=== PATIENT | male | born 1965 | race Caucasian/White ===

== ENCOUNTER 2019-03-22 16:05 | Inpatient (IN) ==
[2019-03-22] MEDS ORDERED: Isovue-370 500 ML BOTTLE IVP ONE (18:34)
[2019-03-22 19:01] LABS: Basophils % 0.3 %; Eosinophils # 0.1 K/mcL (0.0-0.6); Eosinophils % 0.6 %; Hematocrit 40.9 % (37.5-50.1); Hemoglobin 13.9 g/dL (12.9-16.9); Immature Granulocytes % 0.6 % (0-4); Lymphocytes # 3.1 K/mcL (0.6-4.6); Lymphocytes % 29.6 %; Mean Corpuscular Hemoglobin 31.4 pg (28.0-33.3); Mean Corpuscular Volume 92.5 fL (83.0-100.0); Mean Platelet Volume 10.2 fL (9.4-12.4); Monocytes # 1.1 K/mcL (0.0-1.3); Monocytes % 10.5 %; Neutrophils # 6.1 K/mcL (1.6-8.9); Platelet Count 214 K/mcL (140-400); Red Blood Count 4.42 M/mcL (4.19-5.50); Red Cell Distribution Width 12.6 % (11.5-14.5); Segmented Neutrophils % 58.4 %; White Blood Count 10.5 K/mcL (4.3-11.1)
[2019-03-22 19:08] LABS: INR 1.2; Prothrombin Time 13.4 Seconds (9.4-12.1)
[2019-03-22 19:11] LABS: Activated Partial Thrombo Time 34.4 Seconds (26.0-36.0)
[2019-03-22 19:20] LABS: Alanine Aminotransferase 6 Units/L (7-52); Albumin 3.8 g/dL (3.5-5.7); Albumin/Globulin Ratio 1.1 (1.1-2.2); Alkaline Phosphatase 52 Units/L (34-104); Aspartate Amino Transferase 10 Units/L (13-39); BUN/Creatinine Ratio 24 (6-26); Bilirubin,Direct 0.2 mg/dL (0.0-0.2); Bilirubin,Indirect 0.3 mg/dL (0.0-1.2); Bilirubin,Total 0.5 mg/dL (0.3-1.0); Blood Urea Nitrogen 20 mg/dL (6-20); Calcium 9.2 mg/dL (8.6-10.3); Carbon Dioxide 25 mEq/L (23-29); Chloride 102 mEq/L (98-107); Globulin 3.4 g/dL (2.4-3.5); Glucose 93 mg/dL (70-105); Osmolality,Calculated 282 (280-300); Phosphorous 3.4 mg/dL (2.7-4.5); Potassium 4.1 mEq/L (3.5-5.1); Sodium 135 mEq/L (136-145); Total Protein 7.2 g/dL (6.4-8.9); eGFR For African Americans > 60 (> 60); eGFR For Non-African Americans > 60 (> 60)
[2019-03-22] MEDS ORDERED: Ketorolac 30 MG/ML VIAL IVP ONE (21:01)
[2019-03-22] MEDS ORDERED: Clindamycin 600 MG/50 ML 600 MG/50 ML IV.SOLN IVPB ONE (22:01)
[2019-03-23] MEDS ORDERED: Ondansetron 4 MG/2 ML VIAL IVP PRN (00:09)
[2019-03-23] MEDS ORDERED: Naloxone 0.4 MG/ML INJ IVP PRN (00:09)
[2019-03-23] MEDS ORDERED: Acetaminophen 325 MG TABLET PO PRN ×2 (00:09→05:57)
[2019-03-23] MEDS ORDERED: Mag Hydrox/Al Hydrox/Simeth 30 ML UDC PO PRN (00:09)
[2019-03-23] MEDS: 0.9 % Sodium Chloride 1,000 ML IVC SCH ×2 (01:26→08:47)
[2019-03-23] MEDS: *HR* HYDROcodone/Acet 5/325 mg TABLET PO PRN ×4 (01:29→17:07)
[2019-03-23] MEDS ORDERED: hydrOXYzine pamoate 25 MG CAPSULE PO PRN (05:57)
[2019-03-23 07:09] LABS: Basophils % 0.1 %; Eosinophils # 0.1 K/mcL (0.0-0.6); Eosinophils % 1.5 %; Hemoglobin 12.9 g/dL (12.9-16.9); Immature Granulocytes % 0.4 % (0-4); Lymphocytes # 2.8 K/mcL (0.6-4.6); Lymphocytes % 41.3 %; Mean Corpuscular HGB Conc 33.9 g/dL (31.6-35.5); Mean Corpuscular Hemoglobin 31.4 pg (28.0-33.3); Mean Corpuscular Volume 92.5 fL (83.0-100.0); Mean Platelet Volume 10.5 fL (9.4-12.4); Monocytes # 0.8 K/mcL (0.0-1.3); Monocytes % 11.2 %; Neutrophils # 3.1 K/mcL (1.6-8.9); Platelet Count 209 K/mcL (140-400); Red Blood Count 4.11 M/mcL (4.19-5.50); Red Cell Distribution Width 12.5 % (11.5-14.5); Segmented Neutrophils % 45.5 %; White Blood Count 6.8 K/mcL (4.3-11.1)
[2019-03-23 07:18] LABS: INR 1.2; Prothrombin Time 13.9 Seconds (9.4-12.1)
[2019-03-23 07:20] LABS: Activated Partial Thrombo Time 34.6 Seconds (26.0-36.0)
[2019-03-23 07:29] LABS: Alanine Aminotransferase 6 Units/L (7-52); Albumin 3.3 g/dL (3.5-5.7); Albumin/Globulin Ratio 1.1 (1.1-2.2); Alkaline Phosphatase 46 Units/L (34-104); Aspartate Amino Transferase 8 Units/L (13-39); BUN/Creatinine Ratio 24 (6-26); Bilirubin,Total 0.4 mg/dL (0.3-1.0); Blood Urea Nitrogen 21 mg/dL (6-20); Calcium 8.9 mg/dL (8.6-10.3); Carbon Dioxide 28 mEq/L (23-29); Chloride 102 mEq/L (98-107); Chol/HDL Ratio 4.3 (0-4.9); Cholesterol 117 mg/dL (< 200); Glucose 125 mg/dL (70-105); HDL Cholesterol 27 mg/dL (40-59); LDL Cholesterol,Calculated 65 mg/dL (0-99); Magnesium 2.1 mg/dL (1.6-2.6); Osmolality,Calculated 288 (280-300); Phosphorous 3.8 mg/dL (2.7-4.5); Potassium 3.7 mEq/L (3.5-5.1); Sodium 137 mEq/L (136-145); Total Protein 6.3 g/dL (6.4-8.9); Triglycerides 123 mg/dL (< 150); eGFR For African Americans > 60 (> 60); eGFR For Non-African Americans > 60 (> 60)
[2019-03-23] MEDS: Cholecalciferol (D-3) 1,000 UNIT (25MCG) TABLET PO SCH (07:45)
[2019-03-23] MEDS ORDERED: *HR* Labetalol 20 MG/4 ML SYRINGE IVP PRN (07:45)
[2019-03-23] MEDS: Nicotine 21 MG PATCH.TD24 TD SCH (07:46)
[2019-03-23] MEDS: Divalproex (12 HR) 500 MG TABLET PO SCH ×2 (07:46→20:12)
[2019-03-23] MEDS: FLUoxetine 20 MG CAPSULE PO SCH (07:46)
[2019-03-23] MEDS ORDERED: Gadolinium Contrast Agent (WT Based) IV PRN (08:05)
[2019-03-23] MEDS ORDERED: clonazePAM 1 MG TABLET PO SCH (09:00)
[2019-03-23] MEDS ORDERED: (Fluticasone/Vilanterol [Breo Ellipta 100-25 Mcg Inh] IH SCH (10:00)
[2019-03-23] MEDS: Budesonide/Formoterol 80/4.5 1 PUFF INH IH SCH (20:03)
[2019-03-23] MEDS ORDERED: (Loxapine Succinate [Loxapine] 10 MG) PO SCH (21:00)
[2019-03-23] MEDS ORDERED: OLANZapine 5 MG TAB.RAPDIS PO SCH (21:00)
[2019-03-24] MEDS: *HR* HYDROcodone/Acet 5/325 mg TABLET PO PRN ×5 (01:04→23:30)
[2019-03-24 04:25] LABS: Basophils % 0.2 %; Eosinophils # 0.1 K/mcL (0.0-0.6); Eosinophils % 0.9 %; Immature Granulocytes % 0.4 % (0-4); Lymphocytes # 3.1 K/mcL (0.6-4.6); Lymphocytes % 36.5 %; Mean Corpuscular HGB Conc 33.3 g/dL (31.6-35.5); Mean Corpuscular Hemoglobin 31.3 pg (28.0-33.3); Mean Corpuscular Volume 93.8 fL (83.0-100.0); Mean Platelet Volume 10.4 fL (9.4-12.4); Monocytes # 0.9 K/mcL (0.0-1.3); Monocytes % 10.7 %; Neutrophils # 4.4 K/mcL (1.6-8.9); Platelet Count 211 K/mcL (140-400); Red Blood Count 3.84 M/mcL (4.19-5.50); Red Cell Distribution Width 12.6 % (11.5-14.5); Segmented Neutrophils % 51.3 %; White Blood Count 8.5 K/mcL (4.3-11.1)
[2019-03-24 04:51] LABS: BUN/Creatinine Ratio 14 (6-26); Blood Urea Nitrogen 12 mg/dL (6-20); Calcium 8.4 mg/dL (8.6-10.3); Carbon Dioxide 28 mEq/L (23-29); Chloride 108 mEq/L (98-107); Glucose 87 mg/dL (70-105); Osmolality,Calculated 289 (280-300); Potassium 4.1 mEq/L (3.5-5.1); Sodium 140 mEq/L (136-145); eGFR For African Americans > 60 (> 60); eGFR For Non-African Americans > 60 (> 60)
[2019-03-24] MEDS ORDERED: Vancomycin 1,000 MG, 0.9 % Sodium Chloride 1,000 ML IR ONE ×2 (06:00→20:28)
[2019-03-24] MEDS: Budesonide/Formoterol 80/4.5 1 PUFF INH IH SCH ×4 (07:36→21:09)
[2019-03-24] MEDS: Divalproex (12 HR) 500 MG TABLET PO SCH ×2 (08:41→20:55)
[2019-03-24] MEDS: Nicotine 21 MG PATCH.TD24 TD SCH (08:41)
[2019-03-24] MEDS: Cholecalciferol (D-3) 1,000 UNIT (25MCG) TABLET PO SCH (08:41)
[2019-03-24] MEDS: FLUoxetine 20 MG CAPSULE PO SCH (08:42)
[2019-03-24] MEDS ORDERED: traZODone 50 MG TABLET PO PRN ×3 (15:50→20:28)
[2019-03-24] MEDS ORDERED: *HR* FentaNYL (PF) 100 MCG/2 ML VIAL ONE ×2 (17:59→19:48)
[2019-03-24] MEDS ORDERED: *HR* Propofol 200 MG/20 ML VIAL IVP ONE ×2 (17:59→18:26)
[2019-03-24] MEDS ORDERED: *HR* Midazolam HCl 2 MG/2 ML VIAL ONE (17:59)
[2019-03-24] MEDS ORDERED: *HR* Heparin 5,000 UNIT/ML VIAL SQ SCH (18:00)
[2019-03-24] MEDS ORDERED: *HR* FentaNYL (PF) 100 MCG/2 ML VIAL IVP ONE (19:57)
[2019-03-24] MEDS ORDERED: Gadolinium Contrast Agent (WT Based) IV PRN (20:28)
[2019-03-24] MEDS ORDERED: Mag Hydrox/Al Hydrox/Simeth 30 ML UDC PO PRN (20:28)
[2019-03-24] MEDS ORDERED: hydrOXYzine pamoate 25 MG CAPSULE PO PRN (20:28)
[2019-03-24] MEDS ORDERED: Naloxone 0.4 MG/ML INJ IVP PRN (20:28)
[2019-03-24] MEDS ORDERED: Acetaminophen 325 MG TABLET PO PRN (20:28)
[2019-03-24] MEDS ORDERED: Ondansetron 4 MG/2 ML VIAL IVP PRN (20:28)
[2019-03-24] MEDS ORDERED: *HR* Labetalol 20 MG/4 ML SYRINGE IVP PRN (20:28)
[2019-03-24] MEDS: clonazePAM 1 MG TABLET PO SCH (20:56)
[2019-03-24] MEDS ORDERED: clonazePAM 1 MG TABLET PO SCH (21:00)
[2019-03-25 05:41] LABS: Basophils % 0.1 %; Hematocrit 38.5 % (37.5-50.1); Hemoglobin 12.7 g/dL (12.9-16.9); Immature Granulocytes % 0.4 % (0-4); Lymphocytes # 1.5 K/mcL (0.6-4.6); Lymphocytes % 18.2 %; Mean Corpuscular Volume 93.9 fL (83.0-100.0); Mean Platelet Volume 10.6 fL (9.4-12.4); Monocytes # 0.7 K/mcL (0.0-1.3); Monocytes % 9.1 %; Neutrophils # 5.8 K/mcL (1.6-8.9); Platelet Count 236 K/mcL (140-400); Red Cell Distribution Width 12.5 % (11.5-14.5); Segmented Neutrophils % 72.2 %
[2019-03-25 06:00] LABS: BUN/Creatinine Ratio 11 (6-26); Blood Urea Nitrogen 9 mg/dL (6-20); Calcium 8.9 mg/dL (8.6-10.3); Carbon Dioxide 30 mEq/L (23-29); Chloride 100 mEq/L (98-107); Glucose 174 mg/dL (70-105); Osmolality,Calculated 289 (280-300); Potassium 4.7 mEq/L (3.5-5.1); Sodium 138 mEq/L (136-145); eGFR For African Americans > 60 (> 60); eGFR For Non-African Americans > 60 (> 60)
[2019-03-25] MEDS: *HR* Heparin 5,000 UNIT/ML VIAL SQ SCH ×2 (06:12→18:53)
[2019-03-25] MEDS: Budesonide/Formoterol 80/4.5 1 PUFF INH IH SCH ×2 (08:07→20:33)
[2019-03-25] MEDS ORDERED: FLUoxetine 20 MG CAPSULE PO SCH (09:00)
[2019-03-25] MEDS: Nicotine 21 MG PATCH.TD24 TD SCH (10:35)
[2019-03-25] MEDS: Divalproex (12 HR) 500 MG TABLET PO SCH ×2 (10:35→21:39)
[2019-03-25] MEDS: FLUoxetine 20 MG CAPSULE PO SCH (10:35)
[2019-03-25] MEDS: clonazePAM 1 MG TABLET PO SCH ×2 (10:35→21:38)
[2019-03-25] MEDS: Cholecalciferol (D-3) 1,000 UNIT (25MCG) TABLET PO SCH (10:36)
[2019-03-25] MEDS: *HR* HYDROcodone/Acet 5/325 mg TABLET PO PRN ×2 (10:36→18:52)
[2019-03-25] MEDS: levoFLOXacin 750 MG/150 ML 750 MG/150 ML BAG IVPB SCH (10:36)
[2019-03-26] MEDS: *HR* HYDROcodone/Acet 5/325 mg TABLET PO PRN ×2 (02:27→20:56)
[2019-03-26] MEDS: *HR* Heparin 5,000 UNIT/ML VIAL SQ SCH ×2 (05:06→18:15)
[2019-03-26 06:06] LABS: Basophils % 0.2 %; Eosinophils # 0.1 K/mcL (0.0-0.6); Eosinophils % 0.8 %; Hematocrit 38.8 % (37.5-50.1); Hemoglobin 12.9 g/dL (12.9-16.9); Immature Granulocytes % 0.6 % (0-4); Lymphocytes # 4.3 K/mcL (0.6-4.6); Lymphocytes % 48.7 %; Mean Corpuscular HGB Conc 33.2 g/dL (31.6-35.5); Mean Corpuscular Hemoglobin 30.7 pg (28.0-33.3); Mean Corpuscular Volume 92.4 fL (83.0-100.0); Mean Platelet Volume 10.6 fL (9.4-12.4); Monocytes # 0.9 K/mcL (0.0-1.3); Monocytes % 10.4 %; Neutrophils # 3.5 K/mcL (1.6-8.9); Platelet Count 244 K/mcL (140-400); Red Cell Distribution Width 12.8 % (11.5-14.5); Segmented Neutrophils % 39.3 %; White Blood Count 8.8 K/mcL (4.3-11.1)
[2019-03-26 06:27] LABS: BUN/Creatinine Ratio 12 (6-26); Blood Urea Nitrogen 12 mg/dL (6-20); Carbon Dioxide 30 mEq/L (23-29); Chloride 101 mEq/L (98-107); Glucose 96 mg/dL (70-105); Osmolality,Calculated 292 (280-300); Sodium 141 mEq/L (136-145); eGFR For African Americans > 60 (> 60); eGFR For Non-African Americans > 60 (> 60)
[2019-03-26] MEDS: Budesonide/Formoterol 80/4.5 1 PUFF INH IH SCH ×2 (07:05→19:43)
[2019-03-26] MEDS: Cholecalciferol (D-3) 1,000 UNIT (25MCG) TABLET PO SCH (08:43)
[2019-03-26] MEDS: Divalproex (12 HR) 500 MG TABLET PO SCH ×2 (08:43→20:57)
[2019-03-26] MEDS: FLUoxetine 20 MG CAPSULE PO SCH (08:43)
[2019-03-26] MEDS: clonazePAM 1 MG TABLET PO SCH ×2 (08:43→20:56)
[2019-03-26] MEDS: Nicotine 21 MG PATCH.TD24 TD SCH (08:44)
[2019-03-26] MEDS: levoFLOXacin 750 MG/150 ML 750 MG/150 ML BAG IVPB SCH (08:46)
[2019-03-26] MEDS ORDERED: *HR* OxyCODONE Immed Rel 5 MG TABLET PO PRN (16:02)
[2019-03-26] MEDS ORDERED: Ketorolac 30 MG/ML VIAL IVP ONE ×2 (16:02→18:41)
[2019-03-26] MEDS ORDERED: *HR* Promethazine 25 MG/ML VIAL IVP PRN ×2 (16:02→18:41)
[2019-03-26] MEDS ORDERED: *HR* Labetalol 20 MG/4 ML SYRINGE IVP PRN ×3 (16:02→18:41)
[2019-03-26] MEDS ORDERED: Ondansetron 4 MG/2 ML VIAL IVP ONE ×2 (16:02→18:41)
[2019-03-26] MEDS ORDERED: Albuterol 2.5 MG/3 ML NEBULIZER IH ONE (16:02)
[2019-03-26] MEDS ORDERED: *HR* Propofol 200 MG/20 ML VIAL IVP ONE (16:46)
[2019-03-26] MEDS ORDERED: *HR* FentaNYL (PF) 100 MCG/2 ML VIAL ONE (16:46)
[2019-03-26] MEDS ORDERED: *HR* Midazolam HCl 2 MG/2 ML VIAL ONE (16:48)
[2019-03-26] MEDS ORDERED: Dexamethasone 4 MG/ML VIAL ONE (16:49)
[2019-03-26] MEDS ORDERED: Ondansetron 4 MG/2 ML VIAL ONE (16:49)
[2019-03-26] MEDS ORDERED: Bupivacaine-MPF 0.25% 10 ML VIAL ONE (16:52)
[2019-03-26] MEDS ORDERED: Vancomycin 1,000 MG VIAL ONE (16:53)
[2019-03-26] MEDS: *HR* HYDROmorphone (PF) 1 MG/ML SYRINGE IVP PRN ×2 (17:57→18:09)
[2019-03-26] MEDS ORDERED: hydrOXYzine pamoate 25 MG CAPSULE PO PRN (18:41)
[2019-03-26] MEDS ORDERED: Naloxone 0.4 MG/ML INJ IVP PRN (18:41)
[2019-03-26] MEDS ORDERED: *HR* HYDROmorphone (PF) 1 MG/ML SYRINGE IVP PRN (18:41)
[2019-03-26] MEDS ORDERED: Mag Hydrox/Al Hydrox/Simeth 30 ML UDC PO PRN (18:41)
[2019-03-26] MEDS ORDERED: Ondansetron 4 MG/2 ML VIAL IVP PRN (18:41)
[2019-03-26] MEDS ORDERED: traZODone 50 MG TABLET PO PRN (18:41)
[2019-03-26] MEDS ORDERED: Acetaminophen 325 MG TABLET PO PRN (18:41)
[2019-03-27 05:19] LABS: Basophils % 0.1 %; Hematocrit 37.8 % (37.5-50.1); Hemoglobin 12.6 g/dL (12.9-16.9); Immature Granulocytes % 0.6 % (0-4); Lymphocytes # 1.5 K/mcL (0.6-4.6); Lymphocytes % 17.4 %; Mean Corpuscular HGB Conc 33.3 g/dL (31.6-35.5); Mean Corpuscular Hemoglobin 31.3 pg (28.0-33.3); Mean Corpuscular Volume 93.8 fL (83.0-100.0); Mean Platelet Volume 10.2 fL (9.4-12.4); Monocytes # 0.6 K/mcL (0.0-1.3); Monocytes % 7.4 %; Neutrophils # 6.3 K/mcL (1.6-8.9); Platelet Count 239 K/mcL (140-400); Red Blood Count 4.03 M/mcL (4.19-5.50); Red Cell Distribution Width 12.5 % (11.5-14.5); Segmented Neutrophils % 74.5 %; White Blood Count 8.5 K/mcL (4.3-11.1)
[2019-03-27] MEDS: *HR* Heparin 5,000 UNIT/ML VIAL SQ SCH ×2 (05:27→17:36)
[2019-03-27 05:33] LABS: BUN/Creatinine Ratio 13 (6-26); Blood Urea Nitrogen 11 mg/dL (6-20); Calcium 9.1 mg/dL (8.6-10.3); Carbon Dioxide 31 mEq/L (23-29); Chloride 99 mEq/L (98-107); Glucose 141 mg/dL (70-105); Osmolality,Calculated 282 (280-300); Potassium 4.5 mEq/L (3.5-5.1); Sodium 135 mEq/L (136-145); eGFR For African Americans > 60 (> 60); eGFR For Non-African Americans > 60 (> 60)
[2019-03-27 05:39] LABS: Hepatitis B Surface Antibody < 3.10 mIU/mL
[2019-03-27 05:51] LABS: Hepatitis B Surface Antigen Nonreactive (Nonreactive)
[2019-03-27] MEDS: Budesonide/Formoterol 80/4.5 1 PUFF INH IH SCH ×2 (07:41→20:08)
[2019-03-27 08:14] LABS: Hepatitis C Virus Antibody Reactive (Nonreactive)
[2019-03-27] MEDS: Cholecalciferol (D-3) 1,000 UNIT (25MCG) TABLET PO SCH (09:13)
[2019-03-27] MEDS: Nicotine 21 MG PATCH.TD24 TD SCH (09:13)
[2019-03-27] MEDS: FLUoxetine 20 MG CAPSULE PO SCH (09:13)
[2019-03-27] MEDS: clonazePAM 1 MG TABLET PO SCH ×2 (09:13→19:59)
[2019-03-27] MEDS: *HR* HYDROcodone/Acet 5/325 mg TABLET PO PRN ×2 (09:13→13:47)
[2019-03-27] MEDS: Divalproex (12 HR) 500 MG TABLET PO SCH ×2 (09:13→19:59)
[2019-03-27] MEDS: levoFLOXacin 750 MG/150 ML 750 MG/150 ML BAG IVPB SCH (09:14)
[2019-03-28 02:50] LABS: Basophils % 0.3 %; Eosinophils # 0.1 K/mcL (0.0-0.6); Eosinophils % 0.7 %; Hematocrit 38.3 % (37.5-50.1); Immature Granulocytes % 0.6 % (0-4); Lymphocytes # 4.4 K/mcL (0.6-4.6); Mean Corpuscular HGB Conc 33.9 g/dL (31.6-35.5); Mean Corpuscular Hemoglobin 31.1 pg (28.0-33.3); Mean Corpuscular Volume 91.6 fL (83.0-100.0); Mean Platelet Volume 10.6 fL (9.4-12.4); Monocytes % 10.5 %; Neutrophils # 4.2 K/mcL (1.6-8.9); Platelet Count 238 K/mcL (140-400); Red Blood Count 4.18 M/mcL (4.19-5.50); Red Cell Distribution Width 12.8 % (11.5-14.5); Segmented Neutrophils % 42.9 %; White Blood Count 9.7 K/mcL (4.3-11.1)
[2019-03-28 03:06] LABS: BUN/Creatinine Ratio 15 (6-26); Blood Urea Nitrogen 17 mg/dL (6-20); Calcium 8.9 mg/dL (8.6-10.3); Carbon Dioxide 30 mEq/L (23-29); Chloride 101 mEq/L (98-107); Glucose 95 mg/dL (70-105); Osmolality,Calculated 287 (280-300); Potassium 4.1 mEq/L (3.5-5.1); Sodium 138 mEq/L (136-145); eGFR For African Americans > 60 (> 60); eGFR For Non-African Americans > 60 (> 60)
[2019-03-28] MEDS: *HR* Heparin 5,000 UNIT/ML VIAL SQ SCH ×2 (05:59→18:14)
[2019-03-28] MEDS: Budesonide/Formoterol 80/4.5 1 PUFF INH IH SCH ×2 (07:54→20:28)
[2019-03-28] MEDS: levoFLOXacin 750 MG/150 ML 750 MG/150 ML BAG IVPB SCH (09:12)
[2019-03-28] MEDS: *HR* HYDROcodone/Acet 5/325 mg TABLET PO PRN ×2 (09:13→14:51)
[2019-03-28] MEDS: clonazePAM 1 MG TABLET PO SCH ×2 (09:13→20:59)
[2019-03-28] MEDS: Cholecalciferol (D-3) 1,000 UNIT (25MCG) TABLET PO SCH (09:13)
[2019-03-28] MEDS: Divalproex (12 HR) 500 MG TABLET PO SCH ×2 (09:13→21:00)
[2019-03-28] MEDS: FLUoxetine 20 MG CAPSULE PO SCH (09:13)
[2019-03-28] MEDS: Nicotine 21 MG PATCH.TD24 TD SCH (09:13)
[2019-03-28] MEDS: Ringers Solution, Lactated 1,000 ML IVC SCH ×2 (11:01→21:00)
[2019-03-28 14:41] LABS: Bilirubin,Urine Negative (Negative); Blood,Urine Negative (Negative); Clarity,Urine Clear (Clear); Color,Urine Yellow (Yellow); Glucose,Urine (UA) Normal (Normal); Ketones,Urine Negative (Negative); Leukocyte Esterase,Urine Negative (Negative); Nitrite,Urine Negative (Negative); Protein,Urine Negative (Neg-Trace); Specific Gravity,Urine 1.009 (1.010-1.025); Urobilinogen,Urine Normal (Normal)
[2019-03-28 14:47] LABS: Sodium, Urine 58.2 mEq/L
[2019-03-29] MEDS: *HR* Heparin 5,000 UNIT/ML VIAL SQ SCH ×2 (05:35→17:45)
[2019-03-29 06:17] LABS: Basophils # 0.1 K/mcL (0.0-0.2); Basophils % 0.7 %; Eosinophils # 0.1 K/mcL (0.0-0.6); Eosinophils % 1.5 %; Hematocrit 39.6 % (37.5-50.1); Hemoglobin 13.3 g/dL (12.9-16.9); Immature Granulocytes % 1.3 % (0-4); Lymphocytes # 4.3 K/mcL (0.6-4.6); Lymphocytes % 52.4 %; Mean Corpuscular HGB Conc 33.6 g/dL (31.6-35.5); Mean Corpuscular Hemoglobin 30.7 pg (28.0-33.3); Mean Corpuscular Volume 91.5 fL (83.0-100.0); Mean Platelet Volume 10.5 fL (9.4-12.4); Monocytes # 0.9 K/mcL (0.0-1.3); Monocytes % 11.2 %; Neutrophils # 2.7 K/mcL (1.6-8.9); Platelet Count 234 K/mcL (140-400); Red Blood Count 4.33 M/mcL (4.19-5.50); Red Cell Distribution Width 12.9 % (11.5-14.5); Segmented Neutrophils % 32.9 %; White Blood Count 8.2 K/mcL (4.3-11.1)
[2019-03-29 06:34] LABS: BUN/Creatinine Ratio 15 (6-26); Blood Urea Nitrogen 15 mg/dL (6-20); Calcium 9.3 mg/dL (8.6-10.3); Carbon Dioxide 29 mEq/L (23-29); Chloride 99 mEq/L (98-107); Glucose 97 mg/dL (70-105); Osmolality,Calculated 285 (280-300); Potassium 4.2 mEq/L (3.5-5.1); Sodium 137 mEq/L (136-145); eGFR For African Americans > 60 (> 60); eGFR For Non-African Americans > 60 (> 60)
[2019-03-29] MEDS: Budesonide/Formoterol 80/4.5 1 PUFF INH IH SCH ×2 (07:34→20:12)
[2019-03-29] MEDS: Nicotine 21 MG PATCH.TD24 TD SCH (10:03)
[2019-03-29] MEDS: FLUoxetine 20 MG CAPSULE PO SCH (10:03)
[2019-03-29] MEDS: clonazePAM 1 MG TABLET PO SCH ×2 (10:03→19:57)
[2019-03-29] MEDS: Cholecalciferol (D-3) 1,000 UNIT (25MCG) TABLET PO SCH (10:03)
[2019-03-29] MEDS: Divalproex (12 HR) 500 MG TABLET PO SCH ×2 (10:03→19:57)
[2019-03-29] MEDS: levoFLOXacin 750 MG/150 ML 750 MG/150 ML BAG IVPB SCH (10:12)
[2019-03-29] MEDS: Ringers Solution, Lactated 1,000 ML IVC SCH ×2 (10:13→23:51)
[2019-03-29 13:47] LABS: C-Reactive Protein 5 mg/L (Less than 10)
[2019-03-29] MEDS: metroNIDAZOLE 500 MG TABLET PO SCH ×2 (14:24→19:57)
[2019-03-29] MEDS: *HR* HYDROcodone/Acet 5/325 mg TABLET PO PRN (17:44)
[2019-03-30 02:54] LABS: Basophils % 0.4 %; Eosinophils # 0.1 K/mcL (0.0-0.6); Eosinophils % 1.5 %; Hematocrit 39.9 % (37.5-50.1); Hemoglobin 13.5 g/dL (12.9-16.9); Immature Granulocytes % 1.4 % (0-4); Lymphocytes % 51.3 %; Mean Corpuscular HGB Conc 33.8 g/dL (31.6-35.5); Mean Corpuscular Volume 91.7 fL (83.0-100.0); Mean Platelet Volume 10.8 fL (9.4-12.4); Monocytes % 12.4 %; Neutrophils # 2.6 K/mcL (1.6-8.9); Platelet Count 240 K/mcL (140-400); Red Blood Count 4.35 M/mcL (4.19-5.50); White Blood Count 7.8 K/mcL (4.3-11.1)
[2019-03-30 03:15] LABS: BUN/Creatinine Ratio 17 (6-26); Blood Urea Nitrogen 15 mg/dL (6-20); Calcium 9.3 mg/dL (8.6-10.3); Carbon Dioxide 26 mEq/L (23-29); Chloride 102 mEq/L (98-107); Glucose 96 mg/dL (70-105); Osmolality,Calculated 285 (280-300); Potassium 4.2 mEq/L (3.5-5.1); Sodium 137 mEq/L (136-145); eGFR For African Americans > 60 (> 60); eGFR For Non-African Americans > 60 (> 60)
[2019-03-30] MEDS: *HR* Heparin 5,000 UNIT/ML VIAL SQ SCH ×2 (05:18→17:10)
[2019-03-30] MEDS: Budesonide/Formoterol 80/4.5 1 PUFF INH IH SCH ×2 (07:52→20:25)
[2019-03-30] MEDS: levoFLOXacin 750 MG/150 ML 750 MG/150 ML BAG IVPB SCH (10:12)
[2019-03-30] MEDS: Nicotine 21 MG PATCH.TD24 TD SCH (10:13)
[2019-03-30] MEDS: FLUoxetine 20 MG CAPSULE PO SCH (10:14)
[2019-03-30] MEDS: clonazePAM 1 MG TABLET PO SCH ×2 (10:14→21:13)
[2019-03-30] MEDS: Divalproex (12 HR) 500 MG TABLET PO SCH ×2 (10:14→21:13)
[2019-03-30] MEDS: metroNIDAZOLE 500 MG TABLET PO SCH ×3 (10:14→21:13)
[2019-03-30] MEDS: Cholecalciferol (D-3) 1,000 UNIT (25MCG) TABLET PO SCH (10:14)
[2019-03-30] MEDS: *HR* HYDROcodone/Acet 5/325 mg TABLET PO PRN ×2 (10:16→21:13)
[2019-03-30] MEDS ORDERED: Lidocaine -MPF 1% 5 ML AMPUL INFILT ONE (11:21)
[2019-03-30] MEDS: Ringers Solution, Lactated 1,000 ML IVC SCH (11:41)
[2019-03-31] MEDS: *HR* Heparin 5,000 UNIT/ML VIAL SQ SCH ×2 (06:23→19:33)
[2019-03-31] MEDS: Budesonide/Formoterol 80/4.5 1 PUFF INH IH SCH ×2 (07:38→20:04)
[2019-03-31] MEDS: FLUoxetine 20 MG CAPSULE PO SCH (09:24)
[2019-03-31] MEDS: clonazePAM 1 MG TABLET PO SCH ×2 (09:24→20:50)
[2019-03-31] MEDS: levoFLOXacin 750 MG/150 ML 750 MG/150 ML BAG IVPB SCH (09:25)
[2019-03-31] MEDS: Cholecalciferol (D-3) 1,000 UNIT (25MCG) TABLET PO SCH (09:25)
[2019-03-31] MEDS: metroNIDAZOLE 500 MG TABLET PO SCH ×3 (09:25→20:50)
[2019-03-31] MEDS: Divalproex (12 HR) 500 MG TABLET PO SCH ×2 (09:25→20:50)
[2019-03-31] MEDS: Nicotine 21 MG PATCH.TD24 TD SCH (09:25)
[2019-04-01 04:50] LABS: Basophils % 0.5 %; Eosinophils # 0.2 K/mcL (0.0-0.6); Eosinophils % 2.5 %; Hematocrit 40.7 % (37.5-50.1); Hemoglobin 13.6 g/dL (12.9-16.9); Immature Granulocytes % 1.1 % (0-4); Lymphocytes # 3.5 K/mcL (0.6-4.6); Lymphocytes % 41.6 %; Mean Corpuscular HGB Conc 33.4 g/dL (31.6-35.5); Mean Corpuscular Hemoglobin 30.7 pg (28.0-33.3); Mean Corpuscular Volume 91.9 fL (83.0-100.0); Mean Platelet Volume 10.4 fL (9.4-12.4); Monocytes # 1.1 K/mcL (0.0-1.3); Monocytes % 13.2 %; Neutrophils # 3.4 K/mcL (1.6-8.9); Platelet Count 228 K/mcL (140-400); Red Blood Count 4.43 M/mcL (4.19-5.50); Red Cell Distribution Width 13.2 % (11.5-14.5); Segmented Neutrophils % 41.1 %; White Blood Count 8.3 K/mcL (4.3-11.1)
[2019-04-01 05:10] LABS: BUN/Creatinine Ratio 28 (6-26); Blood Urea Nitrogen 26 mg/dL (6-20); Calcium 9.3 mg/dL (8.6-10.3); Carbon Dioxide 25 mEq/L (23-29); Chloride 100 mEq/L (98-107); Glucose 94 mg/dL (70-105); Osmolality,Calculated 287 (280-300); Potassium 4.3 mEq/L (3.5-5.1); Sodium 136 mEq/L (136-145); eGFR For African Americans > 60 (> 60); eGFR For Non-African Americans > 60 (> 60)
[2019-04-01] MEDS: *HR* Heparin 5,000 UNIT/ML VIAL SQ SCH ×2 (05:53→17:16)
[2019-04-01] MEDS: Cholecalciferol (D-3) 1,000 UNIT (25MCG) TABLET PO SCH (10:03)
[2019-04-01] MEDS: levoFLOXacin 750 MG/150 ML 750 MG/150 ML BAG IVPB SCH (10:03)
[2019-04-01] MEDS: clonazePAM 1 MG TABLET PO SCH ×2 (10:03→20:12)
[2019-04-01] MEDS: Divalproex (12 HR) 500 MG TABLET PO SCH ×2 (10:03→20:12)
[2019-04-01] MEDS: FLUoxetine 20 MG CAPSULE PO SCH (10:03)
[2019-04-01] MEDS: metroNIDAZOLE 500 MG TABLET PO SCH ×3 (10:03→20:12)
[2019-04-01] MEDS: Nicotine 21 MG PATCH.TD24 TD SCH (10:03)
[2019-04-01] MEDS: Budesonide/Formoterol 80/4.5 1 PUFF INH IH SCH ×2 (10:48→20:28)
[2019-04-02] MEDS: *HR* Heparin 5,000 UNIT/ML VIAL SQ SCH (06:14)
[2019-04-02] MEDS: Budesonide/Formoterol 80/4.5 1 PUFF INH IH SCH (07:31)
[2019-04-02] MEDS: levoFLOXacin 750 MG/150 ML 750 MG/150 ML BAG IVPB SCH (07:42)
[2019-04-02] MEDS: Cholecalciferol (D-3) 1,000 UNIT (25MCG) TABLET PO SCH (07:42)
[2019-04-02] MEDS: FLUoxetine 20 MG CAPSULE PO SCH (07:42)
[2019-04-02] MEDS: metroNIDAZOLE 500 MG TABLET PO SCH (07:42)
[2019-04-02] MEDS: Nicotine 21 MG PATCH.TD24 TD SCH (07:42)
[2019-04-02] MEDS: clonazePAM 1 MG TABLET PO SCH (07:42)
[2019-04-02] MEDS: Divalproex (12 HR) 500 MG TABLET PO SCH (07:42)
[2019-04-02 15:16] VITALS: BP 97/63
[2019-04-02] MEDS ORDERED: Aminoglycoside Consult 1 EACH MC ONE (17:56)
== END 2019-04-02 17:57 | DRG 317 ==
LOC: 3ANU 16:05 → EMEROOARM 16:05 → SUATTDRO 03-23 00:15 → 3ANU 03-23 00:50 → SUATTDRO 03-23 12:55
PROVIDERS: ADMIT Internal Medicine; ATTEND Family Medicine